=== PATIENT | male | born 1960 | race Caucasian/White ===

== ENCOUNTER 2017-01-05 20:03 | Emergency (ER) | payer OTHER ==
[~2017-01-05] VITALS: Ht 165.1 cm; Wt 78.1 kg
[2017-01-05 20:10] VITALS: BP 122/77
[2017-01-05] MEDS ORDERED: PROPARACAINE OPHTH 0.5%, 15ML EACHEYE ONE (20:30)
[2017-01-05] MEDS ORDERED: FLUORESCEIN OPHTHALMIC 1 MG STRIP EACHEYE ONE (20:30)
[2017-01-05] MEDS ORDERED: PROPARACAINE OPHTH 0.5%, 15ML ONE (20:34)
[2017-01-05] MEDS ORDERED: FLUORESCEIN OPHTHALMIC 1 MG STRIP ONE (20:35)
== END 2017-01-05 22:58 | disposition home or self-care (01) ==
LOC: EDSEX 20:03 → ED 22:30
DX: H57.12 Ocular pain, left eye (principal); H02.844 Edema of left upper eyelid
CPT/HCPCS: 99283

== ENCOUNTER → 2018-10-12 | Outpatient (CLI) | payer OTHER | END | disposition home or self-care (01) | LOC: RAD 17:13 | PROVIDERS: ATTEND Neurological Surgery | DX: Z01.818 Encounter for other preprocedural examination (principal); M48.061 Spinal stenosis, lumbar region without neurogenic claudication; R79.1 Abnormal coagulation profile | CPT/HCPCS: 71046 ==

== ENCOUNTER → 2018-10-13 | Outpatient (CLI) | payer OTHER | END | disposition home or self-care (01) | LOC: STAR 15:15 | PROVIDERS: ATTEND Neurological Surgery | DX: Z01.811 Encounter for preprocedural respiratory examination (principal); Z01.812 Encounter for preprocedural laboratory examination; M48.061 Spinal stenosis, lumbar region without neurogenic claudication; R79.1 Abnormal coagulation profile | CPT/HCPCS: 93005 ==